=== PATIENT | male | born 1990 | race Caucasian/White ===

== ENCOUNTER 2018-01-07 00:44 | Emergency (ER) | payer OTHER ==
[~2018-01-07] VITALS: Ht 180.3 cm; Wt 81.7 kg
[2018-01-07] MEDS ORDERED: NOHOMEMEDICATIONS (00:53)
[2018-01-07 02:42] VITALS: BP 120/72
== END 2018-01-07 02:45 | disposition home or self-care (01) ==
LOC: M.ERS 00:44
DX: S60.221A Contusion of right hand, initial encounter (principal); W51.XXXA Accidental striking against or bumped into by another person, initial encounter; Y93.89 Activity, other specified; Y92.89 Other specified places as the place of occurrence of the external cause; Y99.8 Other external cause status